=== PATIENT | male | born 2005 | race Two or more races ===

== ENCOUNTER → 2024-12-05 | Emergency (ER) | payer OTHER ==
[~2024-12-05] VITALS: Ht 188 cm; Wt 77.1 kg
[~2024-12-05] MED LIST: AMOX1TAB5 PO; CETIRIZINE HCL 5MG/5ML BLIST.PACK PO STA; DOMETUSS-DMX L118 ML PO; FLONASE16 GM NASAL; GUAIFEN/DEXTROMETHORPHAN/PE PED LIQUID PO STA; ZYRTEC10 MG PO
[2024-12-05 12:08] LABS: HEMATOCRIT 45.1 % (39.0-48.0); HEMOGLOBIN 15.2 g/dL (13-16.00); MEAN CELL VOLUME 85.6 fL (80.0-100.00); MEAN CORPUSCULAR HEMOGLOBIN 28.8 pg (27.00-32.0); MEAN CORPUSCULAR HGB CONC 33.6 g/dl (32.0-36.0); PLATELET COUNT 157 K/uL (150-450); RED BLOOD COUNT 5.27 M/uL (4.00-6.00)
== END | disposition home or self-care (01) ==
LOC: EMR PED 10:29 → ER 10:29 → EMR PED 15:37
PROVIDERS: Pediatrics
DX: J32.0 Chronic maxillary sinusitis (principal); J34.2 Deviated nasal septum; J31.0 Chronic rhinitis; R09.81 Nasal congestion; J02.9 Acute pharyngitis, unspecified; Z20.822 Contact with and (suspected) exposure to COVID-19